=== PATIENT | female | born 1980 | race Caucasian/White ===

== ENCOUNTER 2017-12-29 20:07 | Emergency (ER) | payer SELFPAY ==
[~2017-12-29] VITALS: Ht 167.6 cm; Wt 72.6 kg
[~2017-12-29 20:07] MED LIST: FIORICET1 EA
--- OUTSIDE RECORDS SUMMARY | 2017-12-29 20:09 | XMS REPORT ---
Author Author [facility] Address Unknown Phone Unavailable Care Team Providers Care Veterinary Surgery Technologist Name Role Phone Unavailable Unavailable Problems This patient has no known problems. Allergies, Adverse Reactions, Alerts This patient has no known allergies or adverse reactions. Medications This patient has no known medications. Encounters Start Date/Time End Date/Time Encounter Type Admission Type Attending [facility] Care Department Encounter ID 2018-03-05 00:00:00 2018-03-05 00:00:00 Outpatient [facility] [id number] 2018-02-11 00:00:00 2018-02-11 00:00:00 Outpatient [facility] [id number] 2018-01-18 00:00:00 2018-01-18 00:00:00 Outpatient [facility] [id number] 2017-12-24 00:00:00 2017-12-24 00:00:00 Outpatient [facility] [id number] 2017-12-21 00:00:00 2017-12-21 00:00:00 Outpatient [facility] [id number] 2017-12-07 13:14:04 2017-12-07 13:14:04 Outpatient [facility] [id number] 2017-12-04 00:00:00 2017-12-04 00:00:00 Outpatient [facility] [id number] 2017-12-03 00:00:00 2017-12-03 00:00:00 Outpatient [facility] [id number] 2017-11-30 00:00:00 2017-11-30 00:00:00 Outpatient [facility] [id number] 2017-11-27 00:00:00 2017-11-27 00:00:00 Outpatient [facility] [id number] 2017-11-27 00:00:00 2017-11-27 00:00:00 Outpatient [facility] [id number] 2017-11-23 00:00:00 2017-11-23 00:00:00 Outpatient [facility] [id number] 2017-11-20 00:00:00 2017-11-20 00:00:00 Outpatient [facility] [id number] 2017-11-19 09:46:04 2017-11-19 09:46:04 Outpatient [facility] [id number] 2017-11-19 09:13:50 2017-11-19 09:13:50 Outpatient [facility] [id number] 2017-11-19 00:00:00 2017-11-19 00:00:00 Outpatient [facility] [id number] 2017-11-19 00:00:00 2017-11-19 00:00:00 Outpatient [facility] [id number] 2017-11-15 09:31:39 2017-11-15 09:31:39 Outpatient [facility] [id number] 2017-11-08 10:48:49 2017-11-08 10:48:49 Outpatient [facility] [id number] 2017-11-01 11:59:45 2017-11-01 11:59:45 Outpatient [facility] [id number] 2017-11-01 10:38:10 2017-11-01 10:38:10 Outpatient [facility] [id number] 2017-10-25 00:00:00 2017-10-25 00:00:00 Outpatient [facility] [id number] 2017-10-05 14:07:25 2017-10-05 14:07:25 Outpatient [facility] [id number] 2017-10-04 11:25:06 2017-10-04 11:25:06 Outpatient [facility] [id number] 2017-10-04 10:32:20 2017-10-04 10:32:20 Outpatient [facility] [id number] 2017-09-27 00:00:00 2017-09-27 00:00:00 Outpatient [facility] [id number] 2017-09-26 00:00:00 2017-09-26 00:00:00 Outpatient [facility] [id number] 2017-09-26 00:00:00 2017-09-26 00:00:00 Outpatient [facility] [id number] 2017-09-26 00:00:00 2017-09-26 00:00:00 Outpatient [facility] [id number] 2017-09-19 10:46:49 2017-09-19 10:46:49 Outpatient [facility] [id number] 2017-09-19 00:00:00 2017-09-19 00:00:00 Outpatient [facility] [id number] 2017-09-11 13:21:2017-09-11 13:21:01 Outpatient [facility] [id number] 2017-09-07 00:00:00 2017-09-07 00:00:00 Outpatient [facility] [id number] 2017-09-05 00:00:00 2017-09-05 00:00:00 Outpatient [facility] [id number] 2017-08-31 09:25:37 2017-08-31 09:25:37 Outpatient [facility] [id number] 2017-08-29 00:00:00 2017-08-29 00:00:00 Outpatient [facility] [id number] 2017-08-22 12:33:36 2017-08-22 12:33:36 Outpatient [facility] [id number] 2017-08-22 12:02:12 2017-08-22 12:02:12 Outpatient [facility] [id number] 2017-08-09 00:00:00 2017-08-09 00:00:00 Outpatient [facility] [id number] 2017-08-01 00:00:00 2017-08-01 00:00:00 Outpatient [facility] [id number] 2017-07-30 00:00:00 2017-07-30 00:00:00 Outpatient [facility] [id number] 2017-07-27 00:00:00 2017-07-27 00:00:00 Outpatient [facility] [id number] 2017-07-26 14:43:57 2017-07-26 14:43:57 Outpatient [facility] [id number] 2017-07-26 00:00:00 2017-07-26 00:00:00 Outpatient [facility] [id number] 2017-07-19 13:28:40 2017-07-19 13:28:40 Outpatient [facility] [id number] 2017-07-18 12:04:53 2017-07-18 12:04:53 Outpatient [facility] [id number] 2017-07-06 00:00:00 2017-07-06 00:00:00 Outpatient [facility] [id number] 2017-07-04 10:11:10 2017-07-04 10:11:10 Outpatient [facility] [id number] 2017-07-03 12:11:32 2017-07-03 12:11:32 Outpatient [facility] [id number] 2017-07-02 12:20:27 2017-07-02 12:20:27 Outpatient [facility] [id number] 2017-07-02 10:46:59 2017-07-02 10:46:59 Outpatient [facility] [id number] 2017-06-26 12:47:35 2017-06-26 12:47:35 Outpatient [facility] [id number] 2017-06-25 07:35:32 2017-06-25 07:35:32 Emergency [facility] [id number] 2017-06-18 00:00:00 2017-06-18 00:00:00 Outpatient [facility] [id number] 2017-06-12 00:00:00 2017-06-12 00:00:00 Outpatient [facility] [id number] 2017-06-12 00:00:00 2017-06-12 00:00:00 Outpatient [facility] [id number] 2017-06-11 08:28:22 2017-06-11 08:28:22 Outpatient [facility] [id number] 2017-05-29 00:00:00 2017-05-29 00:00:00 Outpatient [facility] [id number] 2017-05-02 00:00:00 2017-05-02 00:00:00 Outpatient [facility] [id number] 2017-05-01 00:00:00 2017-05-01 00:00:00 Outpatient [facility] [id number] 2017-04-30 00:00:00 2017-04-30 00:00:00 Outpatient [facility] [id number] 2017-04-18 00:00:00 2017-04-18 00:00:00 Outpatient [facility] [id number] 2017-04-03 00:00:00 2017-04-03 00:00:00 Outpatient [facility] [id number] 2017-03-19 14:58:32 2017-03-19 14:58:32 Outpatient [facility] [id number] 2017-03-15 11:08:26 2017-03-15 11:08:26 Outpatient [facility] [id number] 2017-02-23 00:00:00 2017-02-23 00:00:00 Outpatient [facility] [id number] 2017-02-23 00:00:00 2017-02-23 00:00:00 Outpatient [facility] [id number] 2017-02-22 14:42:34 2017-02-22 14:42:34 Outpatient [facility] [id number] 2017-02-09 00:00:00 2017-02-09 00:00:00 Outpatient [facility] [id number] 2017-02-03 00:00:00 2017-02-03 00:00:00 Outpatient [facility] [id number] 2017-02-03 00:00:00 2017-02-03 00:00:00 Outpatient [facility] [id number] 2017-01-16 10:35:09 2017-01-16 10:35:09 Outpatient [facility] [id number] 2017-01-12 11:14:36 2017-01-12 11:14:36 Outpatient [facility] [id number] 2017-01-11 00:00:00 2017-01-11 00:00:00 Outpatient [facility] [id number] 2017-01-04 00:00:00 2017-01-04 00:00:00 Outpatient [facility] [id number] 2017-01-03 10:17:56 2017-01-03 10:17:56 Outpatient [facility] [id number] 2017-01-03 09:11:26 2017-01-03 09:11:26 Outpatient [facility] [id number] 2016-03-02 14:36:00 2016-03-02 14:36:00 Outpatient [facility] [id number]
== END 2017-12-29 20:38 | disposition home or self-care (01) ==
LOC: FSED 20:07
DX: L03.012 Cellulitis of left finger (principal); L03.011 Cellulitis of right finger; F17.210 Nicotine dependence, cigarettes, uncomplicated
CPT/HCPCS: 99282